=== PATIENT | female | born 1975 | race Caucasian/White ===

== ENCOUNTER 2020-10-17 07:22 | Outpatient (CLI) | payer OTHER, SELFPAY ==
--- NOTE | ~2020-10-17 | MM_ITS ---
EXAMINATION: MM screening grant BI w deonte HISTORY: Screening TECHNIQUE: Craniocaudal and mediolateral oblique 3-D tomosynthesis images were obtained and synthetic 2-D images were generated. CAD analysis was submitted and interpreted. COMPARISON: No prior mammogram is available for comparison at this institution. BREAST PARENCHYMAL COMPOSITION: The breasts are heterogeneously dense, which may obscure small masses . FINDINGS: There is no evidence of suspicious mass, calcification, or architectural distortion to sugg est malignancy in either breast. There has been no suspicious interval change. IMPRESSION: 1. No mammographic evidence of malignancy. 2. Recommend routine screening mammography in one year. BI-RADS Category 1: Negative Reviewed, dictated and finalized at location A.
== END 2020-10-17 07:23 | disposition home or self-care (01) ==
PROVIDERS: PCP Family Medicine; Visit Provider Obstetrics & Gynecology
DX: Z12.31 Encounter for screening mammogram for malignant neoplasm of breast (principal)
CPT/HCPCS: 77063; 77067

== ENCOUNTER 2022-06-04 09:38 | Outpatient (CLI) | payer OTHER, SELFPAY ==
--- NOTE | ~2022-06-04 | MM_ITS ---
EXAMINATION: MM screening grant BI w deonte HISTORY: Screening mammogram, family history of breast cancer in her sister. TECHNIQUE: Craniocaudal and mediolateral oblique 3-D tomosynthesis images were obtained and synthetic 2-D images were generated. CAD analysis was submitted and interpreted. COMPARISON: 10/17/2020, 10/25/2018 BREAST PARENCHYMAL COMPOSITION: The breasts are heterogeneously dense, which may obscure small masses . FINDINGS: No suspicious mass, calcification, or architectural distortion are identified in either steffanie ast to suggest malignancy. There has been no suspicious interval change. IMPRESSION: 1. No mammographic evidence of malignancy. 2. Recommend routine screening mammography in one year. BI-RADS Category 1: Negative Reviewed, dictated and finalized at location A. 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
== END 2022-06-04 09:39 | disposition home or self-care (01) ==
LOC: ANHIMG 09:39
PROVIDERS: PCP Family Medicine; Visit Provider Obstetrics & Gynecology
DX: Z12.31 Encounter for screening mammogram for malignant neoplasm of breast (principal)
CPT/HCPCS: 77063; 77067

== ENCOUNTER 2022-07-06 09:26 | Outpatient (CLI) | payer OTHER, SELFPAY ==
[2022-07-06 21:35] LABS: Vitamin D 25 Hydroxy 38.8 ng/mL
[2022-07-06 22:19] LABS: Cholesterol 170 mg/dL (0-200); HDL Direct 50 mg/dL; Triglycerides 82 mg/dL (<150)
[2022-07-06 22:31] LABS: LDL Cholesterol Direct 82 mg/dL
== END 2022-07-06 09:27 | disposition home or self-care (01) ==
LOC: ANHGOSHLAB 09:30
PROVIDERS: PCP Family Medicine; Visit Provider Family Medicine
DX: E11.9 Type 2 diabetes mellitus without complications (principal); E55.9 Vitamin D deficiency, unspecified
CPT/HCPCS: 36415; 80061; 82306; 83036

== ENCOUNTER 2022-08-15 13:05 | Emergency (ER) | payer OTHER, SELFPAY ==
--- NOTE | 2022-08-15 13:09 | ED.URI ---
HPI - URI/Sore Throat General Chief Complaint: Upper Respiratory Infection Stated Complaint: headache,muscle aches,chest mili Time Seen by Provider: 08/15/22 13:09 Source: patient and RN notes reviewed History of Present Illness HPI Narrative: Patient is a 47-year-old female who presents to urgent care with complaints of cough, chest congestion, rhinorrhea nasal congestion. Patient states she has also had headaches. States that her symptoms started approximately 1 week ago and everything has resolved with the exception of the chest congestion and cough. Patient denies any recent fevers, nausea or vomiting. States that she did test her for COVID which was negative. Patient has been taking TheraFlu and NyQuil without much resolution. No other acute complaints. No acute distress noted. Patient aware of the plan of care. Some parts of this dictation were generated by voice recognition software and may contain typographical and/or grammatical inaccuracies. Related Data Home Medications Medication Instructions Recorded Confirmed Saccharomyces boulardii 250 mg 5,000 mmu cells PO DAILY 03/18/22 08/15/22 capsule (Daily Probiotic (S. boulardii)) cetirizine 10 mg tablet (Zyrtec) 10 mg PO DAILY PRN Congestion 03/18/22 08/15/22 multivitamin 1 tablet PO DAILY 03/18/22 08/15/22 sertraline 100 mg tablet 100 mg PO DAILY 03/18/22 08/15/22 Allergies Allergy/AdvReac Type Severity Reaction Status Date / Time No Known Allergies Allergy Verified 08/15/22 13:14 Review of Systems Review of Systems: CONSTITUTIONAL: Denies fever, chills, or sweats. EYES: Denies visual changes, redness, or discharge. ENT: Reports postnasal drainage and sinus congestion with rhinorrhea CARDIOVASCULAR: Denies chest pain, palpitations, or edema. RESPIRATORY: Reports chest congestion and cough GASTROINTESTINAL: Denies abdominal pain, nausea, vomiting, or diarrhea. GENITOURINARY: Denies dysuria or hematuria. SKIN: Denies rash or itching. MUSCULOSKELETAL: Denies back pain, joint pain, or myalgia. NEUROLOGIC: Denies headache, numbness, or weakness. All other systems reviewed are negative, except as documented in HPI. [facility] Past Medical History Medical History (Updated 08/15/22 @ 13:22 by MIR Onofre) Allergies Anxiety Type 2 diabetes mellitus Surgical History Surgical History H/O tubal ligation Family History Family History Mother Depression Sibling Breast cancer Depression Son Depression Grandparent Cancer Diabetes mellitus Cerebrovascular accident Depression Social History Social History (Updated 07/19/22 @ 08:55 by Herminia Starks MA) Smoking status: Never smoker Alcohol intake: current Lack of Transportation: No Lack of Food: Never True Current Housing: I Have Housing Concerned About Future Housing: No Difficulty Paying Gas/Electric Bills: No Difficulty Paying for Meds: No Currently Unemployed: No Education: Bachelor's Degree Difficulty w/ Childcare or Family Care: No Comments At the time of my signature, I reviewed and agree with the nursing past medical, surgical, social, and family history. There is no relevant family history pertinent to the patient complaint. Exam Narrative: GENERAL: This is a well-nourished, well-developed patient, in no apparent distress. HEAD: normocephalic, atraumatic. EYES: PERRL. Sclera clear/white. Vision is grossly intact. EARS: External ears normal, auditory canals clear and without drainage, TMs normal without perforation. Hearing grossly intact. NOSE: External nose normal with no obvious nasal discharge, nares without redness, copious clear yellow rhinorrhea. THROAT: Mucous membranes moist, posterior pharynx clear. moderate post nasal drainage NECK: Neck supple, non-tender without lymphadenopathy CARDIOVASCULAR: Regular rate an
[2022-08-15 13:15] VITALS: BP 134/93; PULSE 79; RESP 16; TEMP 36.7; O2SAT 98
== END 2022-08-15 13:31 | disposition home or self-care (01) ==
PROVIDERS: Emergency Provider Nurse Practitioner Family; PCP Family Medicine
DX: J32.9 Chronic sinusitis, unspecified (principal); F41.9 Anxiety disorder, unspecified; E11.9 Type 2 diabetes mellitus without complications
CPT/HCPCS: 99213; G0463

== ENCOUNTER 2022-10-18 08:47 | Outpatient (CLI) | payer OTHER, SELFPAY ==
[2022-10-18 19:13] LABS: Basophils Absolute Auto 0.1 K/mm3 (0.0-0.1); Basophils Percent Auto 0.8 % (0.2-1.2); Eosinophils Absolute Auto 0.3 K/mm3 (0-0.3); Hematocrit 43.8 % (37.0-47.0); Hemoglobin 14.7 g/dL (12.0-15.0); Immature Granulocyte Absolute 0.02 K/mm3 (0.00-0.031); Immature Granulocyte Percent A 0.3 % (0-0.5); Lymphocytes Absolute Auto 2.81 K/mm3 (0.9-3.2); Lymphocytes Percent Auto 35.8 % (18.3-44.2); Mean Corpuscular HGB Conc 33.6 g/dl (32-36); Mean Corpuscular Hemoglobin 31.7 pg (26-34); Mean Corpuscular Volume 94.4 fl (80-100); Mean Platelet Volume 10.7 fl (7.4-10.4); Monocytes Absolute Auto 0.6 K/mm3 (0.1-0.6); Neutrophils Absolute Auto 4.1 K/mm3 (1.3-6.7); Neutrophils Percent Auto 52.1 % (45.5-73.1); Platelet Count Result 242 k/mm3 (150-375); Red Blood Count 4.64 M/mm3 (4.2-5.4); Red Cell Distribution Width 15.3 % (11.5-14.5); White Blood Count 7.8 K/mm3 (4.5-10.0)
[2022-10-18 19:50] LABS: Alanine Aminotransferase 27 U/L (6-35); Albumin Level 4.3 g/dL (3.5-5.1); Alkaline Phosphatase 76 U/L (38-126); Anion Gap 7 mmol/L (8-16); Aspartate Amino Transferase 37 U/L (14-36); Bilirubin,Total 0.7 mg/dL (0.2-1.3); Blood Urea Nitrogen 17 mg/dL (7-17); Calcium 8.6 mg/dL (8.4-10.2); Carbon Dioxide 27 mmol/L (22-30); Chloride 100 mmol/L (98-107); Estimated Glomerular Filt Rate > 60; Glucose 156 mg/dL (65-110); Potassium 3.9 mmol/L (3.4-5.0); Sodium 134 mmol/L (137-145)
[2022-10-18 19:56] LABS: Creatinine Urine 70.7 mg/dL
[2022-10-18 20:04] LABS: MALB Creatinine Ratio < 8.5 mg/g (0-30); Microalbumin Urine Random < 6.0 mg/L (0-16.7)
[2022-10-18 21:14] LABS: Hemoglobin A1C 7.6 % (<5.7)
[2022-10-18 21:39] LABS: Free T4 Free Thyroxine Reflex 1.16 ng/dL (0.78-2.19)
[2022-10-18 22:35] LABS: Total Triiodothyronine (T3) 1.37 NG/ML (0.97-1.69)
== END 2022-10-18 08:48 | disposition home or self-care (01) ==
LOC: ANHGOSHLAB 08:47
PROVIDERS: PCP Internal Medicine; Visit Provider Clinical Nurse Specialist
DX: F41.9 Anxiety disorder, unspecified (principal); E11.9 Type 2 diabetes mellitus without complications
CPT/HCPCS: 36415; 80053; 82043; 82607; 83036; 84439; 84443; 84480; 85025

== ENCOUNTER 2023-01-17 09:27 | Outpatient (CLI) | payer OTHER, SELFPAY ==
[2023-01-17 14:02] LABS: Anion Gap 5 mmol/L (8-16); Blood Urea Nitrogen 13 mg/dL (7-17); Calcium 8.7 mg/dL (8.4-10.2); Carbon Dioxide 29 mmol/L (22-30); Chloride 103 mmol/L (98-107); Estimated Glomerular Filt Rate > 60; Glucose 158 mg/dL (65-110); Sodium 137 mmol/L (137-145)
[2023-01-17 14:08] LABS: Hemoglobin A1C 7.9 % (<5.7)
[2023-01-17 14:15] LABS: Vitamin D 25 Hydroxy 55.9 ng/mL
[2023-01-19 11:13] LABS: Thyroid Stimulating Hormone 0.828 uIU/mL (0.465-4.680)
== END 2023-01-17 09:28 | disposition home or self-care (01) ==
LOC: ANHGOSHLAB 09:30
PROVIDERS: PCP Internal Medicine; Visit Provider Clinical Nurse Specialist
DX: E11.9 Type 2 diabetes mellitus without complications (principal); E55.9 Vitamin D deficiency, unspecified
CPT/HCPCS: 36415; 80048; 82306; 83036; 84443

== ENCOUNTER 2023-04-15 07:57 | Outpatient (CLI) | payer OTHER, SELFPAY ==
[2023-04-15 19:59] LABS: Anion Gap 7 mmol/L (8-16); Blood Urea Nitrogen 16 mg/dL (7-17); Calcium 8.6 mg/dL (8.4-10.2); Carbon Dioxide 27 mmol/L (22-30); Chloride 102 mmol/L (98-107); Estimated Glomerular Filt Rate > 60; Glucose 162 mg/dL (65-110); Potassium 3.8 mmol/L (3.4-5.0); Sodium 136 mmol/L (137-145)
[2023-04-15 20:22] LABS: Creatinine Urine 73.4 mg/dL
[2023-04-15 20:23] LABS: MALB Creatinine Ratio 9.5 mg/g (0-30)
[2023-04-15 20:43] LABS: Hemoglobin A1C 7.8 % (<5.7)
== END 2023-04-15 07:58 | disposition home or self-care (01) ==
LOC: ANHGOSHLAB 08:00
PROVIDERS: PCP Internal Medicine; Visit Provider Clinical Nurse Specialist
DX: R79.89 Other specified abnormal findings of blood chemistry (principal); E55.9 Vitamin D deficiency, unspecified; E11.9 Type 2 diabetes mellitus without complications
CPT/HCPCS: 36415; 80048; 82043; 82306; 82607; 83036; 84443

== ENCOUNTER 2023-07-27 08:02 | Outpatient (CLI) | payer OTHER, SELFPAY ==
[2023-07-27 15:35] LABS: Anion Gap 8 mmol/L (8-16); Blood Urea Nitrogen 16 mg/dL (7-17); Calcium 8.8 mg/dL (8.4-10.2); Carbon Dioxide 27 mmol/L (22-30); Chloride 103 mmol/L (98-107); Estimated Glomerular Filt Rate > 60; Glucose 162 mg/dL (65-110); Potassium 4.2 mmol/L (3.4-5.0); Sodium 138 mmol/L (137-145)
[2023-07-27 20:13] LABS: Hemoglobin A1C 8.8 % (<5.7)
== END 2023-07-27 08:03 | disposition home or self-care (01) ==
LOC: ANHGOSHLAB 08:04
PROVIDERS: PCP Internal Medicine; Visit Provider Clinical Nurse Specialist
DX: E11.9 Type 2 diabetes mellitus without complications (principal)
CPT/HCPCS: 36415; 80048; 83036

== ENCOUNTER 2023-09-13 09:18 | Outpatient (CLI) | payer OTHER, SELFPAY ==
--- NOTE | ~2023-09-13 | MM_ITS ---
EXAMINATION: MM screening grant BI w deonte HISTORY: Screening mammogram TECHNIQUE: Craniocaudal and mediolateral oblique 3-D tomosynthesis images were obtained and synthetic 2-D images were generated. CAD analysis was submitted and interpreted. COMPARISON: 06/04/2022, 10/17/2020, 10/21/2018 bilateral screening mammogram examinations BREAST PARENCHYMAL COMPOSITION: The breasts are heterogeneously dense, which may obscure small masses . FINDINGS: There is no evidence of suspicious mass, calcification, or architectural distortion to sugg est malignancy in either breast. There has been no suspicious interval change. IMPRESSION: 1. No mammographic evidence of malignancy. 2. Recommend routine screening mammography in one year. BI-RADS Category 1: Negative Reviewed, dictated and finalized at location A.
== END 2023-09-13 09:19 | disposition home or self-care (01) ==
PROVIDERS: PCP Clinical Nurse Specialist; Visit Provider Obstetrics & Gynecology
DX: Z12.31 Encounter for screening mammogram for malignant neoplasm of breast (principal)
CPT/HCPCS: 77063; 77067

== ENCOUNTER 2023-10-19 08:45 | Outpatient (CLI) | payer OTHER, SELFPAY ==
[2023-10-19 12:33] LABS: Anion Gap 6 mmol/L (4-12); Blood Urea Nitrogen 14 mg/dL (7-17); Calcium 9.2 mg/dL (8.4-10.2); Carbon Dioxide 28 mmol/L (22-30); Chloride 104 mmol/L (98-107); Estimated Glomerular Filt Rate > 60; Glucose 128 mg/dL (65-110); Potassium 3.9 mmol/L (3.4-5.0); Sodium 138 mmol/L (137-145)
[2023-10-19 13:09] LABS: Hemoglobin A1C 6.9 % (<5.7)
[2023-10-19 13:29] LABS: MALB Creatinine Ratio 8.3 mg/g (0-30); Microalbumin Urine Random 7.8 mg/L (0-16.7)
== END 2023-10-19 08:46 | disposition home or self-care (01) ==
LOC: ANHGOSHLAB 08:47
PROVIDERS: PCP Clinical Nurse Specialist; Visit Provider Clinical Nurse Specialist
DX: E11.9 Type 2 diabetes mellitus without complications (principal)
CPT/HCPCS: 36415; 80048; 82043; 82607; 83036

== ENCOUNTER 2023-12-07 14:24 | Outpatient (CLI) | payer OTHER, SELFPAY ==
--- NOTE | ~2023-12-07 | XR_ITS ---
[id number] 12/07/2023 14:40 Indication: Neck pain Procedure: 3 views cervical spine Comparison: No prior studies for comparison. Findings: Vertebral body heights are maintained. No fracture or traumatic malalignment. No prevertebr al soft tissue swelling. Lung apices are normal. Odontoid process is normal. Lateral masses normally aligned. Impression: 1: No significant abnormality of the cervical spine. Reviewed, dictated and finalized at location B. Impression: 1: No significant abnormality of the cervical spine.
== END 2023-12-07 14:25 | disposition home or self-care (01) ==
LOC: ANHIMG 14:27
PROVIDERS: PCP Clinical Nurse Specialist; Visit Provider Clinical Nurse Specialist
DX: M47.812 Spondylosis without myelopathy or radiculopathy, cervical region (principal)
CPT/HCPCS: 72040

== ENCOUNTER 2024-01-20 09:10 | Outpatient (CLI) | payer OTHER, SELFPAY ==
[2024-01-20 19:01] LABS: Alanine Aminotransferase 25 U/L (6-35); Albumin Level 4.5 g/dL (3.5-5.1); Alkaline Phosphatase 85 U/L (38-126); Anion Gap 11 mmol/L (4-12); Aspartate Amino Transferase 36 U/L (14-36); Bilirubin,Total 0.5 mg/dL (0.2-1.3); Blood Urea Nitrogen 11 mg/dL (7-17); Carbon Dioxide 24 mmol/L (22-30); Chloride 103 mmol/L (98-107); Cholesterol 165 mg/dL (0-200); Estimated Glomerular Filt Rate > 60; Glucose 119 mg/dL (65-110); HDL Direct 47 mg/dL; Potassium 3.9 mmol/L (3.4-5.0); Sodium 138 mmol/L (137-145); Triglycerides 86 mg/dL (<150)
[2024-01-20 19:12] LABS: LDL Cholesterol Direct 104 mg/dL
[2024-01-20 19:16] LABS: Creatinine Urine 86.4 mg/dL
[2024-01-20 19:23] LABS: Free T4 Free Thyroxine 1.08 ng/mL (0.78-2.19); Vitamin D 25 Hydroxy 71.9 ng/mL
[2024-01-20 19:45] LABS: MALB Creatinine Ratio < 6.9 mg/g (0-30); Microalbumin Urine Random < 6.0 mg/L (0-16.7)
== END 2024-01-20 09:11 | disposition home or self-care (01) ==
PROVIDERS: PCP Clinical Nurse Specialist; Visit Provider Nurse Practitioner Family
DX: E11.9 Type 2 diabetes mellitus without complications (principal); E55.9 Vitamin D deficiency, unspecified
CPT/HCPCS: 36415; 80053; 80061; 82043; 82306; 82607; 84439; 84443

== ENCOUNTER 2025-04-05 08:11 | Outpatient (CLI) | payer OTHER, SELFPAY ==
--- OUTSIDE RECORDS SUMMARY | 2025-04-05 08:15 | XMS_ITS | Clinical Summary ---
Author Organization [facility] Address [address] [place] [address] Phone Care Team Providers Care Enamel Drier Name Role Phone Magen Lucas MD Primary Care Provider [phone] Medications metFORMIN (GLUCOPHAGE) 1000 MG Tablet Take 1,000 mg by mouth 2 times daily (with meals). Active oxybutynin (DITROPAN) 5 MG TabletIndications :Urinary incontinence, unspecified type Take 1 Tab by mouth 2 times daily. 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 Gender Identity Not on file Sexual Orientation Not on file Last Filed Vital Signs Vital Sign Reading Time Taken Comments Blood Pressure 118/80 08/14/2018 10:29 AM TAXIMETER REPAIRER Pulse 82 08/14/2018 10:29 AM TAXIMETER REPAIRER Temperature 36.9 C (98.5 F) 08/14/2018 10:29 AM TAXIMETER REPAIRER Respiratory Rate 16 08/14/2018 10:29 AM TAXIMETER REPAIRER Oxygen Saturation 98% 08/14/2018 10:29 AM TAXIMETER REPAIRER Inhaled Oxygen Concentration - - Weight 76.7 kg (169 lb) 08/14/2018 10:29 AM TAXIMETER REPAIRER Height 160 cm (5' 3) 08/14/2018 10:29 AM TAXIMETER REPAIRER Body Mass Index 29.94 08/14/2018 10:29 AM TAXIMETER REPAIRER Plan of Treatment Health Maintenance Due Date Last Done Comments Hepatitis C Virus (HCV) Screening 1977 TdaP Immunization 1977 Hepatitis B Immunization (1 of 3 - 19+ 3-dose series) 1996 Pap Smear 1998 Cervical Cancer Screening (CCS) 2007 HPV/Cotest 2007 Cologuard 2022 Colonoscopy 2022 Colorectal Cancer Screening 2022 Immunochemical Fecal Occult Blood 2022 Influenza Immunization (#1) 03/04/202504/03, 04/13/2017, 04/20/2016, Additional history exists SARS-COV-2 Immunization (2024- season) 2025 12/30/2020, 12/09/2020 Respiratory Syncytial Virus (RSV) Immunization (Adult) (1 - 1-dose 75+ series) 2052 Pneumococcal Immunization Combined Aged Out 05/23/2015 No longer eligible based on patient's age to complete this topic Human Papillomavirus (HPV) Immunization Aged Out No longer eligible based on patient's age to complete this topic Meningococcal Immunization (ACWY) Aged Out No longer eligible based on patient's age to complete this topic Rotavirus Immunization Aged Out No lo nger eligible based on patient's age to complete this topic Insurance MEDICAID [employer] Care Teams Enamel Drier Relationship Specialty Start Date End Date Magen Lucas MD [address] [place] [address] PCP - General Pediatrics 07/27/18
--- OUTSIDE RECORDS SUMMARY | 2025-04-05 08:15 | XMS_ITS | Clinical Summary ---
Author Organization [facility] Address [address] [place] [address] Care Team Providers Care M1 Armor Crewman Name Role Phone Lamberto Jamil DO Primary Care Provider [phone] Allergies No known active allergies Medications Jardiance 25 mg tablet Take 1 tablet (25 mg total) by mouth daily 3 Active metFORMIN (GLUCOPHAGE) 1,000 mg tablet Take 1 tablet (1,000 mg total) by mouth 2 (two) times a day 3 Active pioglitazone (ACTOS) 45 mg tablet Take 1 tablet (45 mg total) by mouth daily 3 Active atorvastatin (LIPITOR) 10 mg tablet Take 1 tablet (10 mg total) by mouth daily 3 Active valACYclovir (VALTREX) 1 gram tablet Take 2 tablets (2,000 mg total) by mouth as needed 3 Active varenicline tartrate (CHANTIX) 1 mg tablet Take 1 tablet (1 mg total) by mouth 2 (two) times a day 3 Active fluconazole (DIFLUCAN) 150 mg tablet Take 1 tablet (150 mg total) by mouth as needed 3 Active cetirizine (ZyrTEC) 10 mg tablet Take 1 tablet (10 mg total) by mouth daily Active multivitamin capsule Take 1 capsule by mouth daily Active Lactobacillus acidophilus 10 billion cell capsule Take 1 capsule by mouth daily Active azelastine-fluti casone 137-50 mcg/spray spray,non-aeroso l ADMINISTER 1 SPRAY INTO AFFECTED NOSTRIL(S) 2 TIMES A DAY. 23 g 2 3 Active montelukast (SINGULAIR) 10 mg tablet TAKE 1 TABLET BY MOUTH EVERY DAY 30 tablet 4 Active clobetasoL (TEMOVATE) 0.05 % ointmentIndicati ons:Atopic Dermatitis Apply topically 2 (two) times a day Apply to rash on hands up to twice daily as needed for itch/rash 60 g 5 5 Active pimecrolimus (ELIDEL) 1 % creamIndications :Intrinsic atopic dermatitis Apply topically 2 (two) times a day Apply to rash on face, neck, and skin folds up to twice daily as needed for eczema 30 g 5 5 Active Active Problems Problem Noted Date Diagnosed Date Allergic rhinitis due to allergen 10/19/2022 Seasonal allergic rhinitis due to pollen 023 Allergic conjunctivitis of both eyes 10/19/2022 Food intolerance in adult 10/19/2022 Encounters Date Type Department Care Team Description 02/22/2025 Telephone [facility] Medicine Dermatology [address] [facility] [address] [place] [phone] Jackie Gupta [facility] Medication PA Approval 02/21/2025 Telephone [facility] Dermatology [address] [facility] [address] [place] [phone] Mallory Heath MD Prior Auth from Last 3 Months Surgical History Surgery Date Site/Laterality Comments SECTION 07/04/2009 - 07/03/2010- 2009,2010,2014 TUBAL LIGATION 07/04/2018 - 07/03/2019 Medical History Medical History Date Comments Diabetes mellitus Family History Medical History Relation Name Comments Diabetes Maternal Grandfather Cancer Maternal Grandmother Allergic rhinitis Mother Anxiety disorder Mother Depression Mother Fayette's disease Paternal Grandfather Cancer Sister Relation Name Status Comments Maternal Grandfather Maternal Grandmother Mother Paternal Grandfather Sister Social History Tobacco Use Types Packs/Day Years Used Date Smoking Tobacco: Some Days Cigarettes Smokeless Tobacco: Never Tobacco Cessation:Ready to Q uit: Not Asked; Counseling Given: Not Answered AUDIT-C Answer Date Recorded Q1: How often do you have a drink containing alc ohol? Monthly or less 10/19/2022 Q2: How many drinks containi ng alcohol do you have on a typical day when you are drinking? 1 or 2 10/19/2022 Q3: How often do you have si x or more drinks on one occasion? 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57 10/19/2022 9:07 AM CDT Plan of Treatment Health Maintenance Due Date Last Done Comments Breast Cancer Screening-Mammogram 1977 Cervical Cancer Screening 1977 Colon Cancer Screening-Colonoscopy 1977 Depression Screening 1977 Hepatitis C Screening 1977 DTaP/Tdap/Td Vaccine (1 - Tdap) 1988 Hepatitis B Screening 1995 Regular Well Visit/Exam 18-64 1995 Pneumococcal vaccine <65 (2 of 2 - PCV) 05/23/2016 05/23/2015 Covid-19 Vaccine (3 - 2024-2 6 season) 2025 12/30/2020, 12/09/2020 Influenza Vaccine (#1) 2025 2, 04/20/2021, 05/15/2019, Additional history exists Insurance [facility] Care Teams M1 Armor Crewman Relationship Specialty Start Date End Date Lamberto Jamil DO PCP - General Internal Medicine 08/30/22
[2025-04-05 13:21] LABS: MALB Creatinine Ratio 7.8 mg/g (0-30)
[2025-04-05 13:53] LABS: Alanine Aminotransferase 29 U/L (6-35); Albumin Level 4.3 g/dL (3.5-5.1); Alkaline Phosphatase 81 U/L (38-126); Anion Gap 8 mmol/L (4-12); Aspartate Amino Transferase 48 U/L (14-36); Bilirubin,Total 0.5 mg/dL (0.2-1.3); Blood Urea Nitrogen 13 mg/dL (7-17); Calcium 9.0 mg/dL (8.4-10.2); Carbon Dioxide 26 mmol/L (22-30); Chloride 105 mmol/L (98-107); Cholesterol 160 mg/dL (0-200); Estimated Glomerular Filt Rate > 60; Glucose 127 mg/dL (65-110); HDL Direct 52 mg/dL; Potassium 4.5 mmol/L (3.4-5.0); Sodium 139 mmol/L (137-145); Total Protein 7.5 g/dL (6.3-8.2); Triglycerides 75 mg/dL (<150)
[2025-04-05 14:10] LABS: Free T4 Free Thyroxine 0.97 ng/dL (0.78-2.19)
[2025-04-05 14:31] LABS: Thyroid Stimulating Hormone 1.260 uIU/mL (0.465-4.680)
[2025-04-05 15:40] LABS: Vitamin B12 354.0 pg/mL (239-931)
== END 2025-04-05 08:12 | disposition home or self-care (01) ==
LOC: ANHGOSHLAB 08:11
PROVIDERS: PCP Internal Medicine; Visit Provider Nurse Practitioner Family
DX: E78.5 Hyperlipidemia, unspecified (principal); E11.9 Type 2 diabetes mellitus without complications; E55.9 Vitamin D deficiency, unspecified; R79.89 Other specified abnormal findings of blood chemistry
CPT/HCPCS: 36415; 80053; 80061; 82043; 82306; 82607; 84439; 84443